=== PATIENT | male | born 1980 | race Caucasian/White ===

== ENCOUNTER 2020-10-02 07:47 | Inpatient (IN) | payer MEDICAID, SELFPAY ==
[~2020-10-02] VITALS: Ht 185.4 cm; Wt 87.2 kg
[2020-10-02 07:55] VITALS: BP_SYST 154
[2020-10-02] MEDS ORDERED: VANCOMYCIN HCL 1,000 MG in NS 250 ML IV ONE (08:15)
[2020-10-02] MEDS ORDERED: VANCOMYCIN HCL 1000 MG/VIAL IV ONE (08:37)
[2020-10-02 08:46] LABS: BASOPHILS % (AUTO) 0.4 % (0.0-2.0); EOSINOPHILS # (AUTO) 0.2 K/uL (0.0-0.4); HEMATOCRIT 44.4 % (36-54); LYMPHOCYTES # (AUTO) 1.9 K/uL (1.0-5.5); LYMPHOCYTES % (AUTO) 17.9 % (20.5-51.5); MEAN CORPUSCULAR HEMOGLOBIN 30 pg (27-31); MEAN CORPUSCULAR HGB CONC 34 % (32-36); MEAN CORPUSCULAR VOLUME 89 fL (79.0-98.0); MONOCYTES # (AUTO) 1.3 K/uL (0.0-1.0); MONOCYTES % (AUTO) 12.2 % (1.7-9.3); NEUTROPHILS % (AUTO) 67.5 % (40.0-70.0); PLATELET COUNT (AUTO) 242 K/uL (130-430); RED BLOOD CELL COUNT(AUTO) 5.01 MIL/uL (4.2-6.2); RED CELL DISTRIBUTION WIDTH 14.4 % (9.0-15.0); WHITE BLOOD COUNT (AUTO) 10.4 K/uL (4.8-10.8)
[2020-10-02] MEDS ORDERED: MORPHINE 2 MG/ML INJ. SYRINGE IVP PRN ×2 (09:00)
[2020-10-02] MEDS ORDERED: MAGNESIUM SULFATE 50 ML IV PRN (09:00)
[2020-10-02] MEDS ORDERED: cefTRIAXone 1 GM IVPB PREMIX 50 ML IV SCH (09:00)
[2020-10-02] MEDS: HEPARIN SODIUM,PORCINE 5,000 UNITS/ML VIAL SUBCUT SCH ×2 (09:00→21:24)
[2020-10-02] MEDS ORDERED: DOCUSATE SODIUM 100 MG CAPSULE PO PRN (09:00)
[2020-10-02] MEDS ORDERED: ZOLPIDEM TARTRATE 5 MG TABLET PO PRN (09:00)
[2020-10-02] MEDS ORDERED: POTASSIUM CHLORIDE 20 MEQ TAB.PRT.SR PO PRN (09:00)
[2020-10-02] MEDS ORDERED: LORazepam 2 MG/ML VIAL IVP PRN (09:00)
[2020-10-02] MEDS ORDERED: ACETAMINOPHEN 325 MG TABLET PO PRN (09:00)
[2020-10-02] MEDS ORDERED: MUPIROCIN 2% TOPICAL OINTMENT 22 GM NS PRN (09:00)
[2020-10-02] MEDS ORDERED: ONDANSETRON HCL 4 MG/2 ML VIAL IVP PRN (09:00)
[2020-10-02 09:27] LABS: BARBITURATE, URINE NEGATIVE (NEG <=200); BENZODIAZEPINE, URINE NEGATIVE (NEG <=150); CANNABINOID, URINE NEGATIVE (NEG <=50); COCAINE, URINE NEGATIVE (NEG <=150); METHAMPHETAMINES SCREEN,URINE POSITIVE (NEG <=500); OPIATE, URINE NEGATIVE (NEG <=100); PHENCYCLIDINE SCREEN,URINE NEGATIVE (NEG <=25); UR TRICYCLIC ANTIDEPRESSANTS NEGATIVE (NEG <=300); URINE AMPHETAMINE POSITIVE (NEG <=500); URINE METHADONE NEGATIVE (NEG <=200); URINE OXYCODONE SCREEN NEGATIVE (NEG <=100); URINE PROPOXYPHENE SCREEN NEGATIVE (NEG <=300)
[2020-10-02] MEDS: NACL 0.9% 1,000 ML IV SCH ×2 (11:09→18:46)
[2020-10-02] MEDS ORDERED: FLUCONAZOLE 200 mg/ NS 100 ML IV SCH (12:00)
[2020-10-02] MEDS ORDERED: NALOXONE HCL 0.4 MG/ML AMP (NARCAN) IVP PRN (16:30)
[2020-10-02] MEDS ORDERED: HYDROcodone/ACETAMIN 5-325 MG TAB (NORCO/ VICODIN) PO PRN (16:30)
[2020-10-02 17:23] LABS: ALBUMIN 3.2 g/dL (3.4-4.8); CALCIUM 8.1 mg/dL (8.4-11.0); CREATININE 0.73 mg/dL (0.55-1.30); POTASSIUM 3.4 mmol/L (3.5-5.1); TOTAL BILIRUBIN 0.7 mg/dL (0.0-1.0)
[2020-10-02 18:15] VITALS: BP_SYST 129
[2020-10-02 19:30] VITALS: BP_SYST 129
[2020-10-03 00:30] VITALS: BP_SYST 119
[2020-10-03 07:02] LABS: BASOPHILS % (AUTO) 0.7 % (0.0-2.0); EOSINOPHILS # (AUTO) 0.3 K/uL (0.0-0.4); EOSINOPHILS % (AUTO) 4.2 % (0.0-4.0); HEMATOCRIT 44.7 % (36-54); HEMOGLOBIN 14.9 g/dL (14.0-18.0); LYMPHOCYTES # (AUTO) 1.5 K/uL (1.0-5.5); LYMPHOCYTES % (AUTO) 19.9 % (20.5-51.5); MEAN CORPUSCULAR HEMOGLOBIN 30 pg (27-31); MEAN CORPUSCULAR HGB CONC 33 % (32-36); MEAN CORPUSCULAR VOLUME 89 fL (79.0-98.0); MONOCYTES # (AUTO) 0.6 K/uL (0.0-1.0); MONOCYTES % (AUTO) 8.7 % (1.7-9.3); NEUTROPHILS # (AUTO) 4.9 K/uL (1.8-7.7); NEUTROPHILS % (AUTO) 66.5 % (40.0-70.0); PLATELET COUNT (AUTO) 246 K/uL (130-430); RED CELL DISTRIBUTION WIDTH 14.6 % (9.0-15.0); WHITE BLOOD COUNT (AUTO) 7.4 K/uL (4.8-10.8)
[2020-10-03 07:13] LABS: CALCIUM 8.3 mg/dL (8.4-11.0); CREATININE 0.94 mg/dL (0.55-1.30); POTASSIUM 3.9 mmol/L (3.5-5.1)
[2020-10-03] MEDS: NACL 0.9% 1,000 ML IV SCH (07:25)
[2020-10-03 08:00] VITALS: BP_SYST 148
[2020-10-03 08:33] VITALS: BP_SYST 145
[2020-10-03] MEDS ORDERED: AMOX-426 PO (08:36)
[2020-10-03] MEDS ORDERED: HYDR-3919 PO (08:37)
== END 2020-10-03 08:50 | disposition home or self-care (01) | DRG 383 ==
LOC: SED 07:47 → SMU 08:54
PROVIDERS: ADMIT General Practice; ATTEND General Practice
DX: L03.116 Cellulitis of left lower limb (principal); L03.115 Cellulitis of right lower limb; E44.1 Mild protein-calorie malnutrition; E87.6 Hypokalemia; F15.10 Other stimulant abuse, uncomplicated; Z20.822 Contact with and (suspected) exposure to COVID-19; F31.9 Bipolar disorder, unspecified; J45.909 Unspecified asthma, uncomplicated; E05.90 Thyrotoxicosis, unspecified without thyrotoxic crisis or storm; Z68.25 Body mass index [BMI] 25.0-25.9, adult; Z88.2 Allergy status to sulfonamides; Z91.19 Patient's noncompliance with other medical treatment and regimen; Z59.0 Homelessness
CPT/HCPCS: 36415; 80048; 80053; 80307; 83036; 83735-TC; 85025; 87040-TC; J0696; J1450; J1644; J3370; J7030

== ENCOUNTER 2021-01-06 03:13 | Emergency (ER) | payer MEDICAID, SELFPAY ==
[~2021-01-06] VITALS: Ht 182.9 cm; Wt 99.8 kg
[~2021-01-06 03:13] MED LIST: AMOX-426 PO; HYDR-3919 PO
[2021-01-06 03:15] VITALS: BP_SYST 145
--- NOTE | 2021-01-06 03:16 | NUR ---
Patient to ER bed 5 to gown for evaluation. Side rails up. Report given to LETA SANTA.
--- NOTE | 2021-01-06 03:17 | NUR ---
Came in ER per gurlorenzo brought by S paramedics from the street, [facility], breathing spontaneously at room air, not in distress noted. With chief complaints of Snake bite at right forearm, History of Asthma, Bipolar, thyroid problem, and Methampethamine use. Allergy to Sulfa. Vital signs stable
--- NOTE | 2021-01-06 03:21 | NUR ---
Seen and examined by Dr. Munoz
--- NOTE | 2021-01-06 03:42 | NUR ---
business office technician at bedside, blood drawn
[2021-01-06 03:52] LABS: BASOPHILS # (AUTO) 0.1 K/uL (0.0-0.2); BASOPHILS % (AUTO) 0.8 % (0.0-2.0); EOSINOPHILS # (AUTO) 0.4 K/uL (0.0-0.4); EOSINOPHILS % (AUTO) 4.2 % (0.0-4.0); HEMATOCRIT 38.1 % (36-54); LYMPHOCYTES # (AUTO) 1.8 K/uL (1.0-5.5); LYMPHOCYTES % (AUTO) 16.9 % (20.5-51.5); MEAN CORPUSCULAR HEMOGLOBIN 30 pg (27-31); MEAN CORPUSCULAR HGB CONC 34 % (32-36); MEAN CORPUSCULAR VOLUME 89 fL (79.0-98.0); MONOCYTES # (AUTO) 1.2 K/uL (0.0-1.0); MONOCYTES % (AUTO) 10.9 % (1.7-9.3); NEUTROPHILS # (AUTO) 7.1 K/uL (1.8-7.7); NEUTROPHILS % (AUTO) 67.2 % (40.0-70.0); PLATELET COUNT (AUTO) 225 K/uL (130-430); RED CELL DISTRIBUTION WIDTH 14.4 % (9.0-15.0); WHITE BLOOD COUNT (AUTO) 10.6 K/uL (4.8-10.8)
--- NOTE | 2021-01-06 03:55 | NUR ---
Voided freely at the toilet, urine sample taken and sent to lab
[2021-01-06 04:06] LABS: CALCIUM 8.1 mg/dL (8.4-11.0); CREATININE 0.91 mg/dL (0.55-1.30); POTASSIUM 4.1 mmol/L (3.5-5.1)
--- NOTE | 2021-01-06 04:15 | NUR ---
To toilet ambulatory, voided freely
[2021-01-06 04:24] LABS: BARBITURATE, URINE NEGATIVE (NEG <=200); URINE AMPHETAMINE POSITIVE (NEG <=500)
[2021-01-06 04:25] LABS: BENZODIAZEPINE, URINE NEGATIVE (NEG <=150); CANNABINOID, URINE POSITIVE (NEG <=50); COCAINE, URINE NEGATIVE (NEG <=150); METHAMPHETAMINES SCREEN,URINE POSITIVE (NEG <=500); OPIATE, URINE NEGATIVE (NEG <=100); PHENCYCLIDINE SCREEN,URINE NEGATIVE (NEG <=25); UR TRICYCLIC ANTIDEPRESSANTS NEGATIVE (NEG <=300); URINE METHADONE NEGATIVE (NEG <=200); URINE OXYCODONE SCREEN NEGATIVE (NEG <=100); URINE PROPOXYPHENE SCREEN NEGATIVE (NEG <=300)
[2021-01-06 04:25] LABS: ALBUMIN 3.4 g/dL (3.4-4.8); TOTAL BILIRUBIN 0.3 mg/dL (0.0-1.0)
[2021-01-06 04:48] LABS: CREATINE KINASE MB 0.2 ng/mL (0-3.6)
--- NOTE | 2021-01-06 05:40 | NUR ---
Re-assesed by Dr. Munoz.
[2021-01-06] MEDS ORDERED: NACL 0.9% 1,000 ML IV ONE (06:15)
--- NOTE | 2021-01-06 06:18 | NUR ---
# 20 gauge angiocath placed to right hand. Use of asceptic technique. Opsite placed over site. Blood return noted. Flushed with 10 cc of normal saline. No evidence of infiltration noted. Patient tolerated well.
[2021-01-06 07:21] VITALS: BP_SYST 125
--- NOTE | 2021-01-06 07:21 | NUR ---
Patient given written and verbal discharge instructions and verbalizes understanding. ER MD discussed with patient the results and treatment provided. Patient in stable condition. ID arm band removed. IV catheter removed intact and dressing applied, no active bleeding. No Rx of given. Patient educated to follow up with PMD. Pain Scale 0/10. Opportunity for questions provided and answered. Homeless packet instruction given
== END 2021-01-06 07:21 | disposition home or self-care (01) ==
LOC: SED 03:13
DX: F15.10 Other stimulant abuse, uncomplicated (principal); J45.909 Unspecified asthma, uncomplicated; Z79.899 Other long term (current) drug therapy
CPT/HCPCS: 36415; 80053; 80307; 82550; 82553; 85025; 93005; 96360; 99284; J7030

== ENCOUNTER 2021-05-01 04:40 | Emergency (ER) | payer MEDICAID ==
[~2021-05-01] VITALS: Ht 177.8 cm; Wt 81.6 kg
--- NOTE | 2021-05-01 04:45 | NUR ---
Patient to ER bed 5 to gown for evaluation. Side rails up. Report given to Cecilio SANTA.
[2021-05-01 04:50] VITALS: BP_SYST 140
--- NOTE | 2021-05-01 04:50 | NUR ---
DR. BLAKE AT BEDSIDE FOR EVALUATION.
[2021-05-01] MEDS ORDERED: LORazepam 2 MG/ML VIAL IM ONE ×2 (05:00→05:30)
[2021-05-01] MEDS ORDERED: DIPHENHYDRAMINE INJ 50 MG/ML VIAL IM ONE ×2 (05:00→05:30)
[2021-05-01] MEDS ORDERED: HALOPERIDOL LACTATE 5 MG/ML VIAL IM ONE (05:00)
--- NOTE | 2021-05-01 05:00 | NUR ---
PT AWAKE AND ALERT BIB BLS FOR BEING UNDER THE INFLUENCE AND USING METH. PATIENT STATED "I CANT SEE BECAUSE THERE ARE SPIDERS, THERE ARE SPIDERS ALL AROUND ME". PT DENIES ANY SOB OR CHEST PAIN. VSS. AMBULATORY WITH STEADY GAIT.
[2021-05-01] MEDS ORDERED: DIPHENHYDRAMINE INJ 50 MG/ML VIAL ONE (05:04)
--- NOTE | 2021-05-01 05:32 | NUR ---
Shila nichols in [facility] - 05/01/21 at 0542 by [email or web address] LAB AT [facility].
--- NOTE | 2021-05-01 05:32 | NUR ---
Note undone in EDM - 05/01/21 at 0542 by [email or web address] PATIENT AAOX4 AND AMBULATORY C/O ABDOMINAL PAIN X TODAY. +NAUSEA AND FEELING IF HE WOULD PASS OUT. PT STATED PAIN IS LOCATED IN CENTER OF ABDOMEN. VSS. CURRENTLY STATING PAIN 09/17 BUT EARLIER 02/17. DENIES ANY SOB OR CHEST PAIN. DENIES DIARRHEA, VOMITING, OR CONSTIPATION.
[2021-05-01 05:37] LABS: BARBITURATE, URINE NEGATIVE (NEG <=200); BENZODIAZEPINE, URINE NEGATIVE (NEG <=150); CANNABINOID, URINE POSITIVE (NEG <=50); COCAINE, URINE NEGATIVE (NEG <=150); METHAMPHETAMINES SCREEN,URINE POSITIVE (NEG <=500); OPIATE, URINE NEGATIVE (NEG <=100); PHENCYCLIDINE SCREEN,URINE NEGATIVE (NEG <=25); UR TRICYCLIC ANTIDEPRESSANTS NEGATIVE (NEG <=300); URINE AMPHETAMINE POSITIVE (NEG <=500); URINE METHADONE NEGATIVE (NEG <=200); URINE OXYCODONE SCREEN NEGATIVE (NEG <=100); URINE PROPOXYPHENE SCREEN NEGATIVE (NEG <=300)
--- NOTE | 2021-05-01 07:13 | NUR ---
REPORT GIVEN TO ARINA GRAY TO ASSUME ALL CARE OF PATIENT.
--- NOTE | 2021-05-01 07:36 | NUR ---
Pt asleep in [facility] breathing is even and labored. No distress noted at this time.
--- NOTE | 2021-05-01 09:23 | NUR ---
Pt asleep in [facility] breathing is even and labored. No distress noted at this time.
--- NOTE | 2021-05-01 09:30 | NUR ---
Pt states he is feeling better and wants to leave.
[2021-05-01 09:45] VITALS: BP_SYST 128
--- NOTE | 2021-05-01 09:48 | NUR ---
Patient given written and verbal discharge instructions and verbalizes understanding. Given copies of tests performed during visit. Patient is awake, alert and oriented. Ambulatory with steady gait. Refuses offer of custodial placement. Given list of available shelters in surrounding areas. Pt clothing is appropriate for weather. Pt given bag of food and juice.
== END 2021-05-01 09:48 | disposition home or self-care (01) ==
LOC: SED 04:40
DX: R40.4 Transient alteration of awareness (principal); F15.129 Other stimulant abuse with intoxication, unspecified; F12.929 Cannabis use, unspecified with intoxication, unspecified; J45.909 Unspecified asthma, uncomplicated; Z79.899 Other long term (current) drug therapy
CPT/HCPCS: 80307; 96372; 99284; J1200; J1630; J2060

== ENCOUNTER 2022-05-27 19:48 | Emergency (ER) | payer MEDICAID ==
[~2022-05-27] VITALS: Ht 185.4 cm; Wt 113.4 kg
[2022-05-27 19:54] VITALS: BP_SYST 160
--- NOTE | 2022-05-27 20:25 | NUR ---
MD MICHAEL at bedside examining pt.
--- NOTE | 2022-05-27 20:37 | NUR ---
41 y/o M, BIB BLS ambulance for c/o body aches and tingling of bilateral lower extremities x1 day. Arrived in no acute distress. Breathing adequately on RA. Appears anxious upon ED arrival. Connected to CM.
[2022-05-27] MEDS ORDERED: ALPRAZolam 0.25 MG TABLET PO ONE (20:45)
[2022-05-27 21:20] LABS: BASOPHILS # (AUTO) 0.1 K/uL (0.0-0.2); BASOPHILS % (AUTO) 0.7 % (0.0-2.0); EOSINOPHILS # (AUTO) 0.1 K/uL (0.0-0.4); EOSINOPHILS % (AUTO) 1.4 % (0.0-4.0); HEMATOCRIT 42.6 % (36-54); HEMOGLOBIN 14.7 g/dL (14.0-18.0); LYMPHOCYTES # (AUTO) 1.5 K/uL (1.0-5.5); LYMPHOCYTES % (AUTO) 16.8 % (20.5-51.5); MEAN CORPUSCULAR HEMOGLOBIN 30 pg (27-31); MEAN CORPUSCULAR HGB CONC 35 % (32-36); MEAN CORPUSCULAR VOLUME 87 fL (79.0-98.0); MONOCYTES # (AUTO) 1.2 K/uL (0.0-1.0); MONOCYTES % (AUTO) 13.3 % (1.7-9.3); NEUTROPHILS # (AUTO) 6.2 K/uL (1.8-7.7); NEUTROPHILS % (AUTO) 67.8 % (40.0-70.0); PLATELET COUNT (AUTO) 258 K/uL (130-430); RED CELL DISTRIBUTION WIDTH 13.6 % (9.0-15.0); WHITE BLOOD COUNT (AUTO) 9.2 K/uL (4.8-10.8)
[2022-05-27 21:32] LABS: CREATININE 1.01 mg/dL (0.55-1.30)
[2022-05-27 21:38] LABS: ALBUMIN 3.8 g/dL (3.4-4.8); C-REACTIVE PROTEIN QUANT 3.4 mg/dL (0-0.5); TOTAL BILIRUBIN 0.9 mg/dL (0.0-1.0)
--- NOTE | 2022-05-27 22:24 | NUR ---
Patient given written and verbal discharge instructions and verbalizes understanding. ER MD Landeros discussed with patient the results and treatment provided. Patient in stable condition. ID arm band removed. Written prescription for Xanax provided to pt. Patient educated on pain management and to follow up with PMD. Opportunity for questions provided and answered. Medication side effect fact sheet provided.
[2022-05-27 22:25] VITALS: BP_SYST 134
== END 2022-05-27 22:23 | disposition home or self-care (01) ==
LOC: SED 19:48
DX: F41.1 Generalized anxiety disorder (principal); R20.2 Paresthesia of skin; H92.02 Otalgia, left ear; J45.909 Unspecified asthma, uncomplicated; F19.10 Other psychoactive substance abuse, uncomplicated; Z79.899 Other long term (current) drug therapy
CPT/HCPCS: 36415; 80053; 83605; 85025; 86140; 99283

== ENCOUNTER 2022-06-22 18:44 | Emergency (ER) | payer MEDICAID ==
[~2022-06-22] VITALS: Ht 185.4 cm; Wt 113.4 kg
--- NOTE | 2022-06-22 18:45 | NUR ---
Pt brought by self, A&Ox4, pt presents to ER with c/o bugbites and mild SOB, O2 98%, skin pink and warm, cap refill <3 ,VSS, pt requesting to keep his clothes with security and a gown, food and clothing given to patient.
[2022-06-22 19:05] VITALS: BP_SYST 136
--- NOTE | 2022-06-22 19:15 | NUR ---
Dr Johnson evaluating patient at bedside
[2022-06-22] MEDS ORDERED: ALBMDI INH (22:29)
[2022-06-22 22:57] VITALS: BP_SYST 136
--- NOTE | 2022-06-22 22:57 | NUR ---
Patient given written and verbal discharge instructions and verbalizes understanding. ER MD discussed with patient the results and treatment provided. Patient in stable condition. ID arm band removed. Rx of Ibuprofen given. Patient educated on pain management and to follow up with PMD. Pain Scale 2/10 Opportunity for questions provided and answered. Medication side effect fact sheet provided.
== END 2022-06-22 22:57 | disposition home or self-care (01) ==
LOC: SED 18:44
DX: Z59.9 Problem related to housing and economic circumstances, unspecified (principal); R06.02 Shortness of breath; J45.909 Unspecified asthma, uncomplicated; F17.200 Nicotine dependence, unspecified, uncomplicated; Z79.899 Other long term (current) drug therapy
CPT/HCPCS: 99283

== ENCOUNTER 2024-01-08 22:21 | Emergency (ER) | payer MEDICAID ==
[~2024-01-08] VITALS: Ht 185.4 cm; Wt 90.7 kg
[~2024-01-08 22:21] MED LIST changes: +ALBMDI INH
[2024-01-08 22:33] VITALS: BP_SYST 128; PULSE 82; RESP 18; TEMP 97.8; O2SAT 94
[2024-01-08] MEDS ORDERED: CLOT15CR5 TP (23:43)
[2024-01-08] MEDS ORDERED: PRED20TA PO (23:43)
[2024-01-08] MEDS ORDERED: ALBMDI INH (23:43)
[2024-01-09 00:20] LABS: BARBITURATE, URINE NEGATIVE (NEG <=200); URINE AMPHETAMINE POSITIVE (NEG <=500)
[2024-01-09 00:21] LABS: BENZODIAZEPINE, URINE POSITIVE (NEG <=150); CANNABINOID, URINE POSITIVE (NEG <=50); COCAINE, URINE NEGATIVE (NEG <=150); METHAMPHETAMINES SCREEN,URINE POSITIVE (NEG <=500); OPIATE, URINE NEGATIVE (NEG <=100); PHENCYCLIDINE SCREEN,URINE NEGATIVE (NEG <=25); UR TRICYCLIC ANTIDEPRESSANTS NEGATIVE (NEG <=300); URINE METHADONE NEGATIVE (NEG <=200); URINE OXYCODONE SCREEN NEGATIVE (NEG <=100)
[2024-01-09 00:31] VITALS: BP_SYST 128; PULSE 82; RESP 18; TEMP 97.8; O2SAT 94
== END 2024-01-09 00:31 | disposition home or self-care (01) ==
LOC: SED 22:21
DX: R07.89 Other chest pain (principal); J45.909 Unspecified asthma, uncomplicated; B35.8 Other dermatophytoses; F17.200 Nicotine dependence, unspecified, uncomplicated; F15.90 Other stimulant use, unspecified, uncomplicated; E03.9 Hypothyroidism, unspecified; Z79.899 Other long term (current) drug therapy; Z79.2 Long term (current) use of antibiotics
CPT/HCPCS: 71045; 80307; 93005; 99285